=== PATIENT | female | born 1985 | race Hispanic/Latino ===

== ENCOUNTER 2017-12-25 11:33 | Inpatient (IN) | payer OTHER ==
[2017-12-25 12:19] VITALS: BMI 29.4
[2017-12-25] MEDS ORDERED: Lactated Ringer's 1,000 ML IV ONE (12:25)
[2017-12-25] MEDS ORDERED: Oxytocin 30 UNIT 30 UNITS/500 ML BAG IV ONE ×2 (12:25→20:36)
[2017-12-25] MEDS ORDERED: Lactated Ringer's 1,000 ML IV SCH (12:30)
[2017-12-25 13:10] LABS: SQUAMOUS EPITHIAL < 1 /hpf (0-5); URINE BILIRUBIN NEGATIVE (NEGATIVE); URINE BLOOD NEGATIVE (NEGATIVE); URINE CLARITY SLIGHTY-CLOUDY (Clear); URINE COLOR YELLOW (YELLOW); URINE GLUCOSE (UA) NEG (Normal); URINE LEUKOCYTE ESTERASE NEG Leu/uL (Negative); URINE PROTEIN NEGATIVE (NEGATIVE); URINE UROBILINOGEN 0.2-1.0 mg/dL (0.2-1.0)
[2017-12-25 14:00] LABS: HEMOGLOBIN 12.6 g/dL (12.0-16.0); MEAN CELL VOLUME 92.5 fl (81.0-99.0); MEAN CORPUSCULAR HGB CONC 32.4 g/dL (33.0-37.0); RBC 4.19 Mil/uL (3.80-5.20); RED CELL DISTRIBUTION WIDTH 13.4 % (11.5-14.5); WHITE BLOOD COUNT 5.7 K/uL (4.8-10.8)
[2017-12-25 14:03] LABS: ALB/GLOB RATIO 1.2 (1.0-2.1); ALBUMIN 3.5 g/dL (3.5-5.0); ALT/SGPT 23 U/L (9-52); AST/SGOT 27 U/L (14-36); BLOOD UREA NITROGEN 12 mg/dl (7-17); CALCIUM 8.6 mg/dL (8.4-10.2); GFR NON-AFRICAN AMERICAN > 60; URIC ACID 8.1 mg/Dl (2.2-7.5)
[2017-12-25] MEDS ORDERED: Fentanyl/Bupivacaine HCl 250 ML EPI ONE (17:01)
--- NOTE | 2017-12-25 18:38 | OBHP ---
Datetime: 12/25/2017 16:51 Presentation-Admit: Vertex FHR - Baseline A Provider: 120 Membranes, Provider: Ruptured Contraction Comments Provider: Q2-4 min apart Gestation - Est Wks by US: 39.1 Vital Signs Provider: Reviewed Vital Signs Provider Details: Elevated BPs NICHD Variability Prov Fetus A: Moderate 6-25bpm NICHD Accel Fetus A IP Provider: 15X15 FHR Category Provider Fetus A: Category I NICHD Decel Fetus A IP Provider: None Dilatation, Provider: 4 Effacement, Provider: 90 Station, Provider: 0 Datetime: 12/25/2017 12:50 IP Adm Impression: Term, intrauterine ; No Active Labor IP Admit Plan: Admit to unit; Initiate labor protocol Admit Comment, IP Provider: Pt is a 32 yo F IUP @ 39.1wk BRITTNEY is 12/31/17 based on LMP of 03/15 and 9 wk U/S 05/28/17. Pt here for asymptomatic HTN she went to see Dr. Tejeda today in the offic e and her BP ranged from 190/100 down to 130/91 took 4 times. States this is the first time she's bec ome hypertensive in the and has no pmhx of HTN. Pt denies vaginal bleeding, contractions, L OF, fevers, dizziness, headache, blurry vision, chest pain, SOB, nausea, vomiting, diarrhea, constipa tion, dysuria; Reports good movements. PNP: Dr. 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 Lungs: clear to auscultation bilaterally, no wheezing, rales or rhonchi Abdomen: Gravid, soft nontender to palpation, + BS LE: no edema Psych: Normal affect Heart Rate: 140, moderate 6-25bpm, category 1, 15x15 A/P: Pt is a 32 yo F IUP @ 39.1wk with elevated bp r/o preecelmpisa -Admit to L _ D, NPO -Initiate labor protocol/pre eclamptic workup -Monitor heart tracings -IVF's, CBC, CMP, LDH, Uric Acid, Fibrinogen, Pitocin -Urinalysis ordered Case reviewed and discussed with Attending Micaela Christopher M.D. PGY-1 agree with above thyriod dsicorge gestatinal thrombocytopneis pih labs bv admit Pelvic Type - PN: Adequate Extremities - PN: Normal Abdomen - PN: Normal Back - PN: Not Done Breast - PN: Not Done Lungs - PN: Normal Heart - PN: Normal Thyroid - PN: Not Done Neurologic - PN: Not Done HEENT - PN: Normal General - PN: Normal IP Hx Assessment: The History has been Reviewed and is Current EGA AdmitDate IP: 39.1 IP Chief Complaint: Signs/Symptoms Gestational HTN Genitourinary Exam: Normal DTRs - PN: Not Done
--- NOTE | 2017-12-25 18:39 | OBPN ---
Datetime: 12/25/2017 16:51 IP Progress Impression: Normal progression of labor IP Procedures: Sterile Vag Exam IP Progress Plan: Continue present management; Induction Membranes, Provider: Ruptured Contraction Comments Provider: Q2-4 min apart FHR - Baseline A Provider: 120 Gestation - Est Wks by US: 39.1 Presentation-Admit: Vertex IP Progress Note Comment: S: Patient is starting to feel contractions more regularly, would like an epidural. No leakage of fluid since AROM. O: see exam section BP intermittently >140/90, no severe range pressures A/P: 32 year pld G1 admitted at 39.1 for IOL secondary to new onset gestational hypertension, but cannot exclude developing preeclampsia since she has a diagnosis of gestational thrombocytopenia - Progressing appropriately since last exam, patient would now like an epidural - BPs are elevated but no severe range pressures yet - Admission Plts were 95 - EFM reassuring Andria Jesus MD OB Fellow agree with abvovce @ 39+ wks in labr a/sp arom ve /-2 vtx clear efm; cat i toto q5 min for pitocion as per protocl Vital Signs Provider: Reviewed Vital Signs Provider Details: Elevated BPs NICHD Accel Fetus A IP Provider: 15X15 FHR Category Provider Fetus A: Category I NICHD Variability Prov Fetus A: Moderate 6-25bpm Dilatation, Provider: 4 Effacement, Provider: 90 Station, Provider: 0 NICHD Decel Fetus A IP Provider: None
--- NOTE | 2017-12-25 20:35 | OBDS ---
MATERNAL INFORMATION Provider Comments: pt was fully dilated and pushing, atruatmic spontanoeu deliveyr of head, no nouch al cord noted. atruatmic, spotneaus deiveyr of anterior follwoed by edin singer followed by delve yr of body. both oral and nasal passages of aston baby were bubl suctioned. ubmicla cord was clamped an d cut. baby handed to mother on abodmen with rn assistance. cord blood colelcted ans sent x 2. spoten aou delivey of intact placent with membrnea. fundus. firm, good hemostiasl. first degree perienal lac eration noted and repared with 2-0 choric. gfood hemosis, no compicate live male ifnat cephaic presnet agpars 9,9 ebl 200ml no complicaitns LABOR SUMMARY EDC: 12/31/2017 00:00 No. Babies in Womb: 0 Labor Anesthesia: Epidural LABOR INFORMATION Onset of Labor: 12/25/2017 14:00 Group B Beta Strep: Negative (Annotations: 12/11/17) MEMBRANES Membranes Rupture Method: Artificial Rupture of Membranes: 12/25/2017 15:00 Amniotic Fluid Color: Clear Amniotic Fluid Amount: Scant Amniotic Fluid Odor: Normal PRESENTATION/POSITION BABY A Presentation: Cephalic
[2017-12-25] MEDS ORDERED: Oxycodone/Acetaminophen 5/325 mg Tab PO PRN ×2 (20:36)
[2017-12-25] MEDS ORDERED: OXYTOCIN/0.9 % NS 20 UNIT/1,000 ML BAG IV ONE (20:36)
[2017-12-25] MEDS ORDERED: Benzocaine/Menthol SPRAY TOP PRN (20:36)
[2017-12-25 22:47] VITALS: O2SAT 100
[2017-12-26] MEDS ORDERED: Oxycodone/Acetaminophen 5/325 mg Tab PO PRN ×2 (00:05)
[2017-12-26] MEDS ORDERED: Benzocaine/Menthol SPRAY TOP PRN (00:05)
[2017-12-26 06:14] LABS: BASO % 0.2 % (0.0-2.0); EOS % 0.4 % (0.0-4.0); HEMOGLOBIN 11.5 g/dL (12.0-16.0); LYMPH # 1.5 K/uL (1.0-4.3); LYMPH % 18.7 % (20.0-40.0); MEAN CELL VOLUME 90.7 fl (81.0-99.0); MEAN CORPUSCULAR HEMOGLOBIN 30.3 pg (27.0-31.0); MEAN CORPUSCULAR HGB CONC 33.4 g/dL (33.0-37.0); MEAN PLATELET VOLUME 11.6 fl (7.2-11.7); MONO # 0.6 K/uL (0.0-0.8); MONO % 7.1 % (0.0-10.0); NEUT # 5.8 K/uL (1.8-7.0); NEUT % 73.6 % (50.0-75.0); RBC 3.79 Mil/uL (3.80-5.20); RED CELL DISTRIBUTION WIDTH 13.7 % (11.5-14.5); WHITE BLOOD COUNT 7.8 K/uL (4.8-10.8)
[2017-12-26] MEDS ORDERED: Levothyroxine 150 MCG TAB PO SCH (06:30)
[2017-12-26] MEDS: Levothyroxine 150 MCG TAB PO SCH (06:41)
--- NOTE | 2017-12-26 07:29 | OBPPN ---
Datetime: 12/26/2017 07:21 PP Pain Prov: Within normal limits PP Nausea Prov: Denies PP Flatus Prov: Yes PP Breasts Prov: Normal PP Heart Prov: Normal PP Lungs Prov: Normal PP Abdomen/Uterus Prov: Normal PP Lochia Prov: Normal PP Vulva/Perineum Prov: Normal PP CVA Tenderness Prov: Normal PP Extremities Prov: Normal PP Impression Prov: Normal progression Vital Signs Provider PP: Reviewed
--- NOTE | 2017-12-26 08:06 | OBHP ---
Datetime: 12/25/2017 12:50 Admit Comment, IP Provider: Pt is a 32 yo F IUP @ 39.1wk BRITTNEY is 12/31/17 based on LMP of 03/15 and 9 wk U/S 05/28/17. Pt here for asymptomatic HTN she went to see Dr. Tejeda today in the offic e and her BP ranged from 190/100 down to 130/91 took 4 times. States this is the first time she's bec ome hypertensive in the and has no pmhx of HTN. Pt denies vaginal bleeding, contractions, L OF, fevers, dizziness, headache, blurry vision, chest pain, SOB, nausea, vomiting, diarrhea, constipa tion, dysuria; Reports good movements. PNP: Dr. 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 Lungs: clear to auscultation bilaterally, no wheezing, rales or rhonchi Abdomen: Gravid, soft nontender to palpation, + BS LE: no edema Psych: Normal affect Heart Rate: 140, moderate 6-25bpm, category 1, 15x15 A/P: Pt is a 32 yo F IUP @ 39.1wk with elevated bp r/o preecelmpisa -Admit to L _ D, NPO -Initiate labor protocol/pre eclamptic workup -Monitor heart tracings -IVF's, CBC, CMP, LDH, Uric Acid, Fibrinogen, Pitocin -Urinalysis ordered Case reviewed and discussed with Attending Micaela Christopher M.D. PGY-1 agree with above thyriod dsicorge gestatinal thrombocytopneis pih labs bv admit OB Hospitalist on-call. With PGY1, I saw this patinet and agree with note AURY Tejeda notif ied - will admit and start Pitocin EGA AdmitDate IP: 39.1
[2017-12-26] MEDS: Multivitamin With Minerals Tab PO SCH (08:45)
[2017-12-26] MEDS ORDERED: Multivitamin With Minerals Tab PO SCH (09:00)
[2017-12-27] MEDS: Levothyroxine 150 MCG TAB PO SCH (06:49)
--- NOTE | 2017-12-27 09:21 | OBDCSUM ---
Datetime: 12/27/2017 09:18 Discharged to, Provider: Home Follow up at, Provider: Dr Tejeda Disch Instr Activity: Normal activity Disch Instr Diet: Regular Discharge Instructions, Provider: Routine instructions given Discharge Diagnosis, Provider: Term Delivered Discharge Time: 12/27/2017 09:18 Follow up in weeks, Provider: 6 weeks Disch Referrals: None Contraception discussed, Prov: Yes Disch Activity Restrictions: No sexual activity; Nothing in vagina - Mar[place], tampons, douche Discharge Comment, Provider: precautions given Contraception after Delivery: Not Planning to Use
--- NOTE | 2017-12-27 09:21 | OBPPN ---
Datetime: 12/27/2017 09:18 PP Pain Prov: Within normal limits PP Nausea Prov: Denies PP Flatus Prov: Yes PP BM Prov: No PP Breasts Prov: Normal PP Heart Prov: Normal PP Lungs Prov: Normal PP Abdomen/Uterus Prov: Normal PP Lochia Prov: Normal PP Vulva/Perineum Prov: Normal PP CVA Tenderness Prov: Normal PP Extremities Prov: Normal PP C/S Incision Prov: Not Applicable PP Progress Prov: Normal PP Impression Prov: Normal progression PP Plan Prov: Discharge PP Progress Note Prov: pt seen adn examiend perorts pian controlled iw htmeds. pt ambuaitn,v not yet voiidng, no passign flatu, toelrateing diet with out nause, vmitig, fver, chills vss pe see aobve a/p s/p ppD 2 dc home rto 6 wekes f/u cbc precauting iven IP PP Procedures: None Vital Signs Provider PP: Reviewed; Within Normal Limits
[2017-12-27] MEDS: Multivitamin With Minerals Tab PO SCH (09:38)
[2017-12-28 00:03] VITALS: BP 130/74; PULSE 59; RESP 18; TEMP 97.5
== END 2017-12-27 17:10 | disposition home or self-care (01) | DRG 806 ==
LOC: H.EROB2 11:33 → H.EROB 12:25 → H.L&D 16:58 → H.OB/GYN 22:30
PROVIDERS: ADMIT Obstetrics & Gynecology; ATTEND Obstetrics & Gynecology
PROC: 10E0XZZ Delivery of Products of Conception, External Approach (ICD-10-PCS; principal; 2017-12-25)
PROC: 0HQ9XZZ Repair Perineum Skin, External Approach (ICD-10-PCS; 2017-12-25)
PROC: 4A1HXCZ Monitoring of Products of Conception, Cardiac Rate, External Approach (ICD-10-PCS; 2017-12-25)
DX: O13.4 Gestational [pregnancy-induced] hypertension without significant proteinuria, complicating childbirth (principal); O99.12 Other diseases of the blood and blood-forming organs and certain disorders involving the immune mechanism complicating childbirth; Z37.0 Single live birth; O70.0 First degree perineal laceration during delivery; Z3A.39 39 weeks gestation of pregnancy; Z85.850 Personal history of malignant neoplasm of thyroid

== ENCOUNTER 2018-01-02 18:19 | Emergency (ER) | payer OTHER ==
[2018-01-02 18:20] VITALS: BMI 29.4
[2018-01-02 18:31] VITALS: BP 132/90; PULSE 68; RESP 16; TEMP 98.5; O2SAT 98
--- NOTE | 2018-01-02 19:30 | ED PDOC ---
HPI: Female Pain Time Seen by Provider: 01/02/18 18:28 Chief Complaint (Nursing): Female Genitourinary History Per: Patient Additional Complaint(s): Pt. states she is currently 8 days post . States she had a normal vaginal delivery here done by Dr. Khloe Tejeda without complication. States since the delivery she's had dysuria. Denies fever, back pain, flank pain, N/V/D, abd pain. Of note, pt. states she is currently . Also reports vaginal bleeding has been improving since the delivery. Noticed blood in her urine today prompting ED visit. Past Medical History Reviewed: Historical Data, Nursing Documentation, Vital Signs Vital Signs: Last Vital Signs Temp 98.5 F 01/02/18 18:25 Pulse 68 01/02/18 18:25 Resp 16 01/02/18 18:25 BP 132/90 01/02/18 18:25 Pulse Ox 98 01/02/18 18:25 - Surgical History Surgical History: No Surg Hx - Family History Family History: States: No Known Family Hx - Home Medications Home Medications: Ambulatory Orders Medication Instructions Recorded Levothyroxine [Synthroid] 1 tab PO DAILY 12/25/17 No122/Iron/Folic Acid 1 tab PO DAILY 12/25/17 [ Multi Tablet] Nitrofurantoin Macrocrystals 100 mg PO BID #13 cap 01/02/18 [Macrobid] - Allergies Allergies/Adverse Reactions: Allergies Allergy/AdvReac Type Severity Reaction Status Date / Time No Known Allergies Allergy Verified 11/04/17 23:49 Review of Systems ROS Statement: Except As Marked, All Systems Reviewed And Found Negative Genitourinary Female: Positive for: Dysuria Physical Exam - Physical Exam Appears: Positive for: Well, Non-toxic, No Acute Distress Skin: Positive for: Normal Color, Warm. Negative for: Rash Eye Exam: Positive for: Normal appearance Gastrointestinal/Abdominal: Positive for: Soft. Negative for: Tenderness Back: Negative for: L CVA Tenderness, R CVA Tenderness Neurologic/Psych: Positive for: Alert, Oriented (x3) - Laboratory Results Urine POC: Negative Urine dip results: Positive for: Leukocyte Esterase (moderate), Blood (large). Negative for: Nitrate, Ketones, Glucose, Bilirubin, Protein - ECG O2 Sat by Pulse Oximetry: 98 - Progress ED Course And Treament: Urine culture sent. Call placed to Dr. Tejeda but as per her service she requests OBGYN be called. Case d/w Dr. Lopez, FLORIDALMA medication care manager, who recommends Macrobid for UTI. States Macrobid is safe with . Disposition - Clinical Impression Clinical Impression: Urinary tract infection - Patient ED Disposition Is Patient to be Admitted: No - Disposition Referrals: Khloe Tejeda MD [Medical Doctor] - [facility] [Outside] Disposition: Routine/Home Disposition Time: 19:28 Condition: STABLE Additional Instructions: FOLLOW UP WITH DR. TEJEDA FOR FURTHER EVALUATION RETURN TO ED IMMEDIATELY IF SYMPTOMS WORSEN LENCHO PEDRAZA, thank you for letting us take care of you today. Your provider was Aminah Alcanatr MD and you were treated for POSS UTI. The emergency medical care you received today was directed at your acute symptoms. If you were prescribed any medication, please fill it and take as directed. It may take several days for your symptoms to resolve. Return to the Emergency Department if your symptoms worsen, do not improve, or if you have any other problems. Please contact your doctor or call one of the physicians/clinics you have been referred to that are listed on the Patient Visit Information form that is included in your discharge packet. Bring any paperwork you were given at discharge with you along with any medications you are taking to your follow up visit. Our treatment cannot replace ongoing medical care by a primary care provider outside of the emergency department. Thank you for allowing the [facility] team to be part of your care today. If you had an X-Ray or CT scan: A Radiologist will review the ED reading if any change in treatment is needed we will contact you. If you had a blood, urine, or wound culture: It will take several days for the results, if any change in treatment is needed we will contact you. If you had an STI test: It will take 48 hours for the results. Please call after 1 week if you have not heard back. Prescriptions: Nitrofurantoin Macrocrystals [Macrobid] 100 mg PO BID #13 cap Instructions: Urinary Tract Infection, Adult (DC) Forms: X-IO (Sami) Print Language: TAMAZIGHT
== END 2018-01-02 19:33 | disposition home or self-care (01) ==
LOC: H.ER 18:19
DX: N39.0 Urinary tract infection, site not specified (principal)